=== PATIENT | female | born 1990 | race American Indian/Alaskan Native ===

== ENCOUNTER 2017-02-01 16:08 | Emergency (ER) | payer MEDICAID ==
--- NOTE | 2017-02-01 21:48 | Emergency Department Report ---
ED Lower Extremity HPI - General Chief Complaint: Extremity Injury, Lower Stated Complaint: LT KNEE SWOLLEN Time Seen by Provider: 02/01/17 21:38 Source: patient Mode of arrival: Ambulatory Limitations: No Limitations - History of Present Illness Initial Comments: 26 old female presents to emergency room with complaints of left knee injury status post fall at [facility]'s bathroom. Patient slipped and fell onto her left knee , since then her left knee has been bothering her. Patient has history of previous left knee fracture. Denies any other injury. She complains of left knee pain upon standing walking and squatting. Complaint: knee injury -: Gradual, hour(s) (several) Injury: Knee: Left (anterior aspect) Type of Injury: blunt Place: other ([employer]) Severity: moderate Severity scale (0 -10): 4 Improves With: nothing Worsens With: movement Context: fall Associated Symptoms: swelling, able to partially bear weight Treatments Prior to Arrival: cold therapy - Related Data Previous Rx's Medication Instructions Recorded Last Taken Type Cephalexin [Keflex] 1,000 mg PO BID #40 capsule 09/27/13 Unknown Rx HYDROcodone/APAP 10-325 [[place] 1 each PO Q6HR PRN #15 tablet 09/27/13 Unknown Rx 10/325] Ondansetron [Zofran] 4 mg PO Q6HR PRN #10 tablet 09/27/13 Unknown Rx HYDROcodone/APAP 5-325 [[place] 1 each PO Q6HR PRN #6 tablet 04/14/14 Unknown Rx 5/325 mg] traMADol [Ultram 50 MG tab] 50 mg PO Q6HR PRN #30 tablet 07/22/14 Unknown Rx Acetaminophen/Codeine 1 tab PO Q6H PRN #10 tab 11/26/14 Unknown Rx [Acetaminophen-Codeine #3 TAB] Ibuprofen [Motrin] 600 mg PO Q8H PRN #30 tablet 11/26/14 Unknown Rx Naproxen [Naprosyn TAB] 500 mg PO BID #30 tablet 03/05/15 Unknown Rx Acetaminophen/Codeine [Tylenol #3] 1 tab PO Q6H PRN #15 tab 11/13/15 Unknown Rx Acetaminophen/Codeine [Tylenol 1 tab PO Q6H PRN #12 tab 02/01/17 Unknown Rx /Codeine # 3 tab] Diclofenac Sodium 75 mg PO BID #20 tablet. 02/01/17 Unknown Rx Allergies Allergy/AdvReac Type Severity Reaction Status Date / Time vinay Allergy Rash Verified 11/13/15 14:50 tomato Allergy Swelling Verified 11/13/15 14:50 tramadol Allergy Bleeding Verified 11/13/15 14:50 mushrooms Allergy Swelling Uncoded 11/13/15 14:50 ED Review of Systems ROS: Stated complaint: LT KNEE SWOLLEN Other details as noted in HPI Comment: All other systems reviewed and negative Constitutional: denies: chills, fever Eyes: denies: eye pain, eye discharge, vision change ENT: denies: ear pain, throat pain Respiratory: denies: cough, shortness of breath, wheezing Cardiovascular: denies: chest pain, palpitations Endocrine: no symptoms reported Gastrointestinal: denies: abdominal pain, nausea, diarrhea Genitourinary: denies: urgency, dysuria, discharge Musculoskeletal: as per HPI, arthralgia, other (left knee). denies: back pain, joint swelling Skin: denies: rash, lesions Neurological: denies: headache, weakness, paresthesias Psychiatric: denies: anxiety, depression Hematological/Lymphatic: denies: easy bleeding, easy bruising ED Past Medical Hx - Past Medical History Hx Diabetes: Yes Hx Psychiatric Treatment: Yes (depression) - Surgical History Past Surgical History?: No Additional Surgical History: cyst removed - Family History Family history: no significant - Social History Smoking Status: Current Every Day Smoker Substance Use Type: None - Medications Home Medications: Home Medications Medication Instructions Recorded Confirmed Last Taken Type Cephalexin [Keflex] 1,000 mg PO BID #40 capsule 09/27/13 Unknown Rx HYDROcodone/APAP 10-325 [[place] 1 each PO Q6HR PRN #15 tablet 09/27/13 Unknown Rx 10/325] Ondansetron [Zofran] 4 mg PO Q6HR PRN #10 tablet 09/27/13 Unknown Rx HYDROcodone/APAP 5-325 [[place] 1 each PO Q6HR PRN #6 tablet 04/14/14 Unknown Rx 5/325 mg] traMADol [Ultram 50 MG tab] 50 mg PO Q6HR PRN #30 tablet 07/22/14 Unknown Rx Acetaminophen/Codeine 1 tab PO Q6H PRN #10 tab 11/26/14 Unknown Rx [Acetaminophen-Codeine #3 TAB] Ibuprofen [Motrin] 600 mg PO Q8H PRN #30 tablet 11/26/14 Unknown Rx Naproxen [Naprosyn TAB] 500 mg PO BID #30 tablet 03/05/15 Unknown Rx Acetaminophen/Codeine [Tylenol #3] 1 tab PO Q6H PRN #15 tab 11/13/15 Unknown Rx Acetaminophen/Codeine [Tylenol 1 tab PO Q6H PRN #12 tab 02/01/17 Unknown Rx /Codeine # 3 tab] Diclofenac Sodium 75 mg PO BID #20 tablet. 02/01/17 Unknown Rx ED Physical Exam - General Limitations: No Limitations General appearance: alert, in no apparent distress - Head Head exam: Present: atraumatic, normocephalic - Eye Eye exam: Present: normal appearance, PERRL, EOMI Pupils: Present: normal accommodation - ENT ENT exam: Present: normal exam, mucous membranes moist - Neck Neck exam: Present: normal inspection - Respiratory Respiratory exam: Present: normal lung sounds bilaterally. Absent: respiratory distress - Cardiovascular Cardiovascular Exam: Present: regular rate, normal rhythm. Absent: systolic murmur, diastolic murmur, rubs, gallop - GI/Abdominal GI/Abdominal exam: Present: soft, normal bowel sounds - Extremities Exam Extremities exam: Present: normal inspection, tenderness (anterior left patellar area. ) - Expanded Lower Extremity Exam Left Hip exam: Present: normal inspection, full ROM, tenderness Upper Leg exam: Present: normal inspection, full ROM, tenderness Knee exam: Present: tenderness (left anterior patella), swelling, pain w/ pronation/supination, full knee extension. Absent: abrasion, laceration, ecchymosis, deformity, posterior draw sign, pain/laxity with valgus, pain/ laxity with varus Lower Leg exam: Present: normal inspection, full ROM, tenderness Ankle exam: Present: normal inspection, full ROM Foot/Toe exam: Present: normal inspection, full ROM, tenderness Neuro vascular tendon exam: Present: no vascular compromise, pulse deficit Gait: Positive: antalgic - Back Exam Back exam: Present: normal inspection - Neurological Exam Neurological exam: Present: alert, oriented X3 - Psychiatric Psychiatric exam: Present: normal affect, normal mood - Skin Skin exam: Present: warm, dry, intact, normal color. Absent: rash ED Course Vital Signs 02/01/17 02/01/17 16:43 22:14 Temperature 97.4 F L 97.9 F Pulse Rate 84 83 Respiratory 18 16 Rate Blood Pressure 121/71 Blood Pressure 110/76 [Right] O2 Sat by Pulse 100 100 Oximetry - Orthopedic Splinting/Casting Injury #1 Side: left Lower Extremity Injury Location: knee Lower Extremity Immobilizer: knee immobilizer Other Orthopedic Equipment: crutches ED Lower Extremity MDM - Radiology Data Radiology results: report reviewed (no acute fracture), image reviewed Critical Care Time: No Critical care attestation.: If time is entered above; I have spent that time in minutes in the direct care of this critically ill patient, excluding procedure time. ED Disposition Clinical Impression: Contusion of knee, left Qualifiers: Encounter type: initial encounter Qualified Code(s): S80.02XA - Contusion of left knee, initial encounter Disposition: DISCHARGED TO HOME OR SELFCARE Is pt being admited?: No Does the pt Need Aspirin: No Condition: Good Instructions: Knee Pain (ED) Prescriptions: Acetaminophen/Codeine [Tylenol /Codeine # 3 tab] 1 tab PO Q6H PRN #12 tab PRN Reason: Pain Diclofenac Sodium 75 mg PO BID #20 tablet.dr Referrals: ANA STACK MD [Staff Physician] - 3-5 Days Forms: Work/School Release Form
[2017-02-01 22:14] VITALS: BP 110/76
--- NOTE | 2017-02-02 08:17 | XRay Report ---
RIGHT KNEE: The bony architecture is intact without evidence of fracture or dislocation. No significant soft tissue abnormality is seen. IMPRESSION: Normal right knee.
== END 2017-02-01 22:51 | disposition home or self-care (01) ==
LOC: ED 16:08
DX: S80.02XA Contusion of left knee, initial encounter (principal); E11.9 Type 2 diabetes mellitus without complications; F32.9 Major depressive disorder, single episode, unspecified; F17.200 Nicotine dependence, unspecified, uncomplicated; Z91.018 Allergy to other foods; Z88.8 Allergy status to other drugs, medicaments and biological substances; W18.2XXA Fall in (into) shower or empty bathtub, initial encounter; Y93.89 Activity, other specified; Y92.89 Other specified places as the place of occurrence of the external cause; Y99.8 Other external cause status
CPT/HCPCS: 81025

== ENCOUNTER 2017-11-11 16:54 | Emergency (ER) | payer MEDICAID ==
[2017-11-11] MEDS ORDERED: ASPIRIN PO ONE (17:46)
[2017-11-11 19:35] LABS: Basophils % (Auto) 0.5 % (0.0-1.8); Eosinophils % (Auto) 0.6 % (0.0-4.3); Hematocrit 40.7 % (30.3-42.9); Hemoglobin 13.2 gm/dl (10.1-14.3); Lymphocytes # (Auto) 1.8 K/mm3 (1.2-5.4); Lymphocytes % (Auto) 22.1 % (13.4-35.0); Mean Corpuscular HGB Conc 33 % (30-34); Mean Corpuscular Hemoglobin 27 pg (28-32); Mean Corpuscular Volume 81 fl (79-97); Monocytes # (Auto) 0.6 K/mm3 (0.0-0.8); Monocytes % (Auto) 7.4 % (0.0-7.3); Platelet Count 271 K/mm3 (140-440); Red Cell Distribution Width 13.8 % (13.2-15.2)
[2017-11-11 19:58] LABS: BUN/Creatinine Ratio 20; Blood Urea Nitrogen 12 mg/dL (7-17); Calcium 9.1 mg/dL (8.4-10.2); Hemolysis Index 5
[2017-11-12] MEDS ORDERED: NORCO 5/325 PO ONE (06:49)
--- NOTE | 2017-11-12 06:53 | Emergency Department Report ---
HPI - General Chief Complaint: Chest Pain Time Seen by Provider: 11/12/17 06:43 - HPI HPI: Room 4 The patient is a 27-year-old female presenting with a chief complaint chest pain. Patient states she's had across his substernal chest pain for the past 7 days. He describes the pain as sharp in nature with a pleuritic component. Patient denies any recent flights or long car trips. Patient denies any history of cough or fever. Patient states she has tried ibuprofen but it has not helped her pain. The patient currently gives her pain a score of 9/10. Location: Chest Duration: 7 days Quality: Sharp Severity:9/10 Modifying factors: [see above] Context: [see above] Mode of transportation: [not driving] ED Past Medical Hx - Past Medical History Previous Medical History?: Yes Hx Diabetes: Yes Hx Psychiatric Treatment: Yes (depression) - Surgical History Past Surgical History?: No Additional Surgical History: Buttocks cyst removed - Family History Family history: other (no family history of premature heart disease) - Social History Smoking Status: Former Smoker (none 2 weeks) Substance Use Type: None (denies illicit drug use) - Medications Home Medications: Home Medications Medication Instructions Recorded Confirmed Last Taken Type Cephalexin [Keflex] 1,000 mg PO BID #40 capsule 09/27/13 Unknown Rx HYDROcodone/APAP 10-325 [[place] 1 each PO Q6HR PRN #15 tablet 09/27/13 Unknown Rx 10/325] Ondansetron [Zofran] 4 mg PO Q6HR PRN #10 tablet 09/27/13 Unknown Rx HYDROcodone/APAP 5-325 [[place] 1 each PO Q6HR PRN #6 tablet 04/14/14 Unknown Rx 5/325 mg] traMADol [Ultram 50 MG tab] 50 mg PO Q6HR PRN #30 tablet 07/22/14 Unknown Rx Ibuprofen [Motrin] 600 mg PO Q8H PRN #30 tablet 11/26/14 Unknown Rx Naproxen [Naprosyn TAB] 500 mg PO BID #30 tablet 03/05/15 Unknown Rx Acetaminophen/Codeine [Tylenol #3] 1 tab PO Q6H PRN #15 tab 11/13/15 Unknown Rx Acetaminophen/Codeine [Tylenol 1 tab PO Q6H PRN #12 tab 04/11/17 Unknown Rx /Codeine # 3 tab] Diclofenac Sodium 75 mg PO BID #20 tablet. 02/01/17 Unknown Rx Acetaminophen/Codeine [Tylenol 1 tab PO Q6H PRN #10 tab 11/12/17 Unknown Rx /Codeine # 3 tab] Ibuprofen [Motrin 800 MG tab] 800 mg PO Q8HR PRN #20 tablet 11/12/17 Unknown Rx ED Review of Systems ROS: Stated complaint: CHEST PAIN Other details as noted in HPI Constitutional: denies: fever Eyes: denies: eye pain ENT: denies: throat pain Respiratory: denies: cough Gastrointestinal: denies: abdominal pain Genitourinary: denies: dysuria Musculoskeletal: denies: back pain Neurological: denies: headache Physical Exam - Physical Exam Vital Signs: Vital Signs 11/11/17 17:42 Temperature 97.8 F Pulse Rate 88 Respiratory 16 Rate Blood Pressure 110/81 O2 Sat by Pulse 99 Oximetry Physical Exam: GENERAL: The patient is well-developed well-nourished female lying on stretcher not appearing to be in acute distress. [] HEENT: Normocephalic. Atraumatic. Patient has moist mucous membranes. NECK: Supple. Trachea midline CHEST/LUNGS: Clear to auscultation. There is no respiratory distress noted. HEART/CARDIOVASCULAR: Regular. There is no tachycardia. There is no gallop rub or murmur. ABDOMEN: Abdomen is soft, nontender. Patient has normal bowel sounds. There is no abdominal distention. SKIN: There is no rash. There is no edema. There is no diaphoresis. NEURO: The patient is awake, alert, and oriented. The patient is cooperative. The patient has normal speech MUSCULOSKELETAL: There is no evidence of acute injury. ED Course Vital Signs 11/11/17 17:42 Temperature 97.8 F Pulse Rate 88 Respiratory 16 Rate Blood Pressure 110/81 O2 Sat by Pulse 99 Oximetry ED Medical Decision Making - Lab Data Result diagrams: 11/11/17 19:20 11/11/17 19:20 Laboratory Tests 11/11/17 11/11/17 11/11/17 19:20 19:20 19:20 WBC 8.0 RBC 5.00 Hgb 13.2 Hct 40.7 MCV 81 MCH 27 L MCHC 33 RDW 13.8 Plt Count 271 Lymph % (Auto) 22.1 [place] % (Auto) 7.4 H Eos % (Auto) 0.6 Baso % (Auto) 0.5 Lymph # 1.8 [place] # 0.6 Eos # 0.0 Baso # 0.0 Seg Neutrophils % 69.4 Seg Neutrophils # 5.5 D-Dimer Sodium 139 Potassium 4.0 Chloride 100.3 Carbon Dioxide 25 Anion Gap 18 BUN 12 Creatinine 0.6 L Estimated GFR > 60 BUN/Creatinine Ratio 20 Glucose 95 Calcium 9.1 Troponin T < 0.010 NT-Pro-B Natriuret Pep 63.19 HCG, Qual 11/11/17 11/11/17 11/12/17 23:14 23:46 07:16 WBC RBC Hgb Hct MCV MCH MCHC RDW Plt Count Lymph % (Auto) [place] % (Auto) Eos % (Auto) Baso % (Auto) Lymph # [place] # Eos # Baso # Seg Neutrophils % Seg Neutrophils # D-Dimer 168.68 Sodium Potassium Chloride Carbon Dioxide Anion Gap BUN Creatinine Estimated GFR BUN/Creatinine Ratio Glucose Calcium Troponin T < 0.010 < 0.010 NT-Pro-B Natriuret Pep HCG, Qual 11/12/17 07:16 WBC RBC Hgb Hct MCV MCH MCHC RDW Plt Count Lymph % (Auto) [place] % (Auto) Eos % (Auto) Baso % (Auto) Lymph # [place] # Eos # Baso # Seg Neutrophils % Seg Neutrophils # D-Dimer Sodium Potassium Chloride Carbon Dioxide Anion Gap BUN Creatinine Estimated GFR BUN/Creatinine Ratio Glucose Calcium Troponin T NT-Pro-B Natriuret Pep HCG, Qual Negative - EKG Data -: EKG Interpreted by Me EKG shows normal: sinus rhythm Rate: normal - EKG Data When compared to previous EKG there are: previous EKG unavailable Interpretation: normal EKG - Radiology Data Radiology results: image reviewed (chest x-ray) interpreted by me: Chest x-ray-no focal infiltrates, no pneumothorax - Differential Diagnosis PE, pleurisy, bronchitis, pneumothorax Critical care attestation.: If time is entered above; I have spent that time in minutes in the direct care of this critically ill patient, excluding procedure time. ED Disposition Clinical Impression: Chest pain, Pleurisy Disposition: - TO HOME OR SELFCARE Is pt being admited?: No Does the pt Need Aspirin: No Condition: Stable Instructions: Chest Pain (ED) Additional Instructions: Return to the emergency department immediately should you develop worsening symptoms, fever, inability to tolerate food or liquid or any other concerns. Prescriptions: Acetaminophen/Codeine [Tylenol /Codeine # 3 tab] 1 tab PO Q6H PRN #10 tab PRN Reason: Pain Ibuprofen [Motrin 800 MG tab] 800 mg PO Q8HR PRN #20 tablet PRN Reason: Pain Referrals: KIRIT ROBERSON MD [Primary Care Provider] - 3-5 Days Time of Disposition: 08:31
[2017-11-12] MEDS ORDERED: ASPIRIN ONE (07:00)
--- NOTE | 2017-11-12 08:58 | XRay Report ---
FINAL REPORT EXAM: XRAY CHEST 2 VIEWS HISTORY: chest pain TECHNIQUE: Chest, PA and lateral PRIORS: None. FINDINGS: The heart size is normal. Mediastinal contours are normal. Pulmonary vasculature is not congested. The lungs are clear. There are no pleural effusion seen. There is no evidence of pneumothorax. IMPRESSION: There is no acute abnormality identified.
[2017-11-12 09:06] VITALS: BP 115/82
== END 2017-11-12 09:05 | disposition home or self-care (01) ==
LOC: ED 16:54
DX: R07.89 Other chest pain (principal); E11.9 Type 2 diabetes mellitus without complications; F32.9 Major depressive disorder, single episode, unspecified; Z87.891 Personal history of nicotine dependence
CPT/HCPCS: 36415; 71046; 80048; 83880; 84484; 84703; 85025; 85379; 93005; 93010

== ENCOUNTER 2017-11-24 01:33 | Emergency (ER) | payer MEDICAID ==
[2017-11-24] MEDS ORDERED: ASPIRIN PO ONE (02:22)
[2017-11-24 02:23] VITALS: BP 142/84
== END 2017-11-24 02:00 | disposition left against medical advice (07) ==
LOC: ED 01:33
DX: R07.9 Chest pain, unspecified (principal); Z53.21 Procedure and treatment not carried out due to patient leaving prior to being seen by health care provider
CPT/HCPCS: 93005; 93010

== ENCOUNTER 2018-06-15 15:58 | Emergency (ER) | payer MEDICAID ==
[2018-06-15 16:26] VITALS: BP 130/85
--- NOTE | 2018-06-15 18:14 | Emergency Department Report ---
ED General Adult HPI - General Chief complaint: Chest Pain Stated complaint: CHEST PAIN Time Seen by Provider: 06/15/18 18:03 Source: patient Mode of arrival: Ambulatory Limitations: No Limitations - History of Present Illness Initial comments: Patient is a 27-year-old female who is presenting with 3 days of cough cold congestion substernal chest pain. The patient also says some mild nausea. Patient states the cough is nonproductive. Patient denies fevers chills nausea vomiting diarrhea at this time Severity scale (0 -10): 6 Quality: sharp - Related Data Previous Rx's Medication Instructions Recorded Last Taken Type Cephalexin [Keflex] 1,000 mg PO BID #40 capsule 09/27/13 Unknown Rx HYDROcodone/APAP 10-325 [[place] 1 each PO Q6HR PRN #15 tablet 09/27/13 Unknown Rx 10/325] Ondansetron [Zofran] 4 mg PO Q6HR PRN #10 tablet 09/27/13 Unknown Rx HYDROcodone/APAP 5-325 [[place] 1 each PO Q6HR PRN #6 tablet 04/14/14 Unknown Rx 5/325 mg] traMADol [Ultram 50 MG tab] 50 mg PO Q6HR PRN #30 tablet 07/22/14 Unknown Rx Ibuprofen [Motrin] 600 mg PO Q8H PRN #30 tablet 11/26/14 Unknown Rx Naproxen [Naprosyn TAB] 500 mg PO BID #30 tablet 03/05/15 Unknown Rx Acetaminophen/Codeine [Tylenol #3] 1 tab PO Q6H PRN #15 tab 11/13/15 Unknown Rx Acetaminophen/Codeine [Tylenol 1 tab PO Q6H PRN #12 tab 02/01/17 Unknown Rx /Codeine # 3 tab] Diclofenac Sodium 75 mg PO BID #20 tablet. 02/01/17 Unknown Rx Acetaminophen/Codeine [Tylenol 1 tab PO Q6H PRN #10 tab 11/12/17 Unknown Rx /Codeine # 3 tab] Ibuprofen [Motrin 800 MG tab] 800 mg PO Q8HR PRN #20 tablet 11/12/17 Unknown Rx ALBUTEROL Inhaler [ProAir HFA 2 puff IH QID PRN #1 inhalation 06/15/18 Unknown Rx Inhaler] HYDROcodone/APAP 5-325 [[place] 1 each PO Q4HR PRN #12 tablet 06/15/18 Unknown Rx 5/325] Ondansetron [Zofran Odt] 4 mg PO Q8HR PRN #10 tab.rapdis 06/15/18 Unknown Rx predniSONE [Deltasone] 20 mg PO QDAY #5 tab 06/15/18 Unknown Rx Allergies Allergy/AdvReac Type Severity Reaction Status Date / Time vinay Allergy Rash Verified 11/13/15 14:50 tomato Allergy Swelling Verified 11/13/15 14:50 tramadol Allergy Bleeding Verified 11/13/15 14:50 mushrooms Allergy Swelling Uncoded 11/13/15 14:50 ED Review of Systems ROS: Stated complaint: CHEST PAIN Other details as noted in HPI Constitutional: denies: chills, fever Eyes: denies: eye pain, eye discharge, vision change ENT: denies: ear pain, throat pain Respiratory: cough. denies: shortness of breath, wheezing Cardiovascular: chest pain. denies: palpitations Endocrine: no symptoms reported Gastrointestinal: denies: abdominal pain, nausea, diarrhea Genitourinary: denies: urgency, dysuria, discharge Musculoskeletal: denies: back pain, joint swelling, arthralgia Skin: denies: rash, lesions Neurological: denies: headache, weakness, paresthesias Psychiatric: denies: anxiety, depression Hematological/Lymphatic: denies: easy bleeding, easy bruising ED Past Medical Hx - Past Medical History Previous Medical History?: Yes Hx Diabetes: Yes Hx Psychiatric Treatment: Yes (depression) - Surgical History Past Surgical History?: Yes Additional Surgical History: Buttocks cyst removed - Social History Smoking Status: Never Smoker Substance Use Type: None - Medications Home Medications: Home Medications Medication Instructions Recorded Confirmed Last Taken Type Cephalexin [Keflex] 1,000 mg PO BID #40 capsule 09/27/13 Unknown Rx HYDROcodone/APAP 10-325 [[place] 1 each PO Q6HR PRN #15 tablet 09/27/13 Unknown Rx 10/325] Ondansetron [Zofran] 4 mg PO Q6HR PRN #10 tablet 09/27/13 Unknown Rx HYDROcodone/APAP 5-325 [[place] 1 each PO Q6HR PRN #6 tablet 04/14/14 Unknown Rx 5/325 mg] traMADol [Ultram 50 MG tab] 50 mg PO Q6HR PRN #30 tablet 07/22/14 Unknown Rx Ibuprofen [Motrin] 600 mg PO Q8H PRN #30 tablet 11/26/14 Unknown Rx Naproxen [Naprosyn TAB] 500 mg PO BID #30 tablet 03/05/15 Unknown Rx Acetaminophen/Codeine [Tylenol #3] 1 tab PO Q6H PRN #15 tab 11/13/15 Unknown Rx Acetaminophen/Codeine [Tylenol 1 tab PO Q6H PRN #12 tab 02/01/17 Unknown Rx /Codeine # 3 tab] Diclofenac Sodium 75 mg PO BID #20 tablet. 02/01/17 Unknown Rx Acetaminophen/Codeine [Tylenol 1 tab PO Q6H PRN #10 tab 11/12/17 Unknown Rx /Codeine # 3 tab] Ibuprofen [Motrin 800 MG tab] 800 mg PO Q8HR PRN #20 tablet 11/12/17 Unknown Rx ALBUTEROL Inhaler [ProAir HFA 2 puff IH QID PRN #1 inhalation 06/15/18 Unknown Rx Inhaler] HYDROcodone/APAP 5-325 [[place] 1 each PO Q4HR PRN #12 tablet 06/15/18 Unknown Rx 5/325] Ondansetron [Zofran Odt] 4 mg PO Q8HR PRN #10 tab.rapdis 06/15/18 Unknown Rx predniSONE [Deltasone] 20 mg PO QDAY #5 tab 06/15/18 Unknown Rx ED Physical Exam - General Limitations: No Limitations General appearance: alert, in no apparent distress - Head Head exam: Present: atraumatic, normocephalic - Eye Eye exam: Present: normal appearance - ENT ENT exam: Present: mucous membranes moist - Neck Neck exam: Present: normal inspection - Respiratory Respiratory exam: Present: normal lung sounds bilaterally. Absent: respiratory distress, wheezes, rales, rhonchi - Cardiovascular Cardiovascular Exam: Present: regular rate, normal rhythm, normal heart sounds. Absent: systolic murmur, diastolic murmur, rubs, gallop - GI/Abdominal GI/Abdominal exam: Present: soft, normal bowel sounds. Absent: distended, tenderness, guarding, rebound - Extremities Exam Extremities exam: Present: normal inspection - Back Exam Back exam: Present: normal inspection - Neurological Exam Neurological exam: Present: alert, oriented X3 - Psychiatric Psychiatric exam: Present: normal affect, normal mood - Skin Skin exam: Present: warm, dry, intact, normal color. Absent: rash ED Course Vital Signs 06/15/18 16:10 Temperature 98.7 F Pulse Rate 98 H Respiratory 16 Rate Blood Pressure 130/85 O2 Sat by Pulse 96 Oximetry ED Medical Decision Making - EKG Data -: EKG Interpreted by Me EKG shows normal: sinus rhythm, axis, intervals, QRS complexes, ST-T waves Rate: normal - EKG Data Interpretation: normal EKG - Medical Decision Making Patient's lungs are clear O2 sat is within normal limits she is not tachycardic. Patient will be treated for a mild bronchitis and be discharged home. Critical care attestation.: If time is entered above; I have spent that time in minutes in the direct care of this critically ill patient, excluding procedure time. ED Disposition Clinical Impression: Acute bronchitis Qualifiers: Bronchitis organism: unspecified organism Qualified Code(s): J20.9 - Acute bronchitis, unspecified Disposition: DC-01 TO HOME OR SELFCARE Is pt being admited?: No Does the pt Need Aspirin: No Condition: Stable Instructions: Acute Bronchitis (ED) Referrals: [facility] [Outside] - 3-5 Days Time of Disposition: 18:13
== END 2018-06-15 18:30 | disposition home or self-care (01) ==
LOC: ED 15:58
DX: J20.9 Acute bronchitis, unspecified (principal); E11.9 Type 2 diabetes mellitus without complications; F32.9 Major depressive disorder, single episode, unspecified; Z91.018 Allergy to other foods
CPT/HCPCS: 93005; 93010; 99282

== ENCOUNTER 2019-01-01 03:46 | Emergency (ER) | payer MEDICAID ==
--- NOTE | 2019-01-01 05:24 | Emergency Department Report ---
ED General Adult HPI - General Chief complaint: Chest Pain Stated complaint: CHEST PAIN Time Seen by Provider: 01/01/19 04:49 Source: patient Mode of arrival: Ambulatory Limitations: No Limitations - History of Present Illness Initial comments: Patient's 28-year-old black female history of bronchitis and presents for cough or chest pain 3 days chest pain is reproducible by cough only there is no fevers as no chills no active wheezing no nausea vomiting patient does endorse sick contacts , there is no cp at this time no n/v no diaphoresis no back pain no dizziness no lightheadednesss cough is productive clear mucus , there is no fever no chills. MD Complaint: chest pain with cough Onset/Timin -: unknown (ffffff) Location: chest Radiation: non-radiation Severity scale (0 -10): 5 Quality: sharp Consistency: constant ( ) Improves with: rest Worsens with: other (environmental exposure ) Associated Symptoms: chest pain, cough - Related Data Previous Rx's Medication Instructions Recorded Last Taken Type Cephalexin [Keflex] 1,000 mg PO BID #40 capsule 09/27/13 Unknown Rx Ondansetron [Zofran] 4 mg PO Q6HR PRN #10 tablet 09/27/13 Unknown Rx Ibuprofen [Motrin] 600 mg PO Q8H PRN #30 tablet 11/26/14 Unknown Rx Naproxen [Naprosyn TAB] 500 mg PO BID #30 tablet 03/05/15 Unknown Rx Acetaminophen/Codeine [Tylenol 1 tab PO Q6H PRN #12 tab 02/01/17 Unknown Rx /Codeine # 3 tab] Diclofenac Sodium 75 mg PO BID #20 tablet. 02/01/17 Unknown Rx Acetaminophen/Codeine [Tylenol 1 tab PO Q6H PRN #10 tab 11/12/17 Unknown Rx /Codeine # 3 tab] Ibuprofen [Motrin 800 MG tab] 800 mg PO Q8HR PRN #20 tablet 11/12/17 Unknown Rx ALBUTEROL Inhaler (OR & NICU) 2 puff IH QID PRN #1 inhalation 06/15/18 Unknown Rx [ProAir HFA Inhaler] Ondansetron [Zofran Odt] 4 mg PO Q8HR PRN #10 tab.rapdis 06/15/18 Unknown Rx predniSONE [Deltasone] 20 mg PO QDAY #5 tab 06/15/18 Unknown Rx Acetaminophen [Tylenol Arthritis] 650 mg PO Q6HR PRN #30 tablet.er 10/15/18 Unknown Rx Ibuprofen [Motrin] 600 mg PO Q8H PRN #30 tablet 10/15/18 Unknown Rx Guaifenesin/Pseudoephedrne HCl 1 each PO BID PRN #24 tab.er.12h 01/01/19 Unknown Rx [Mucinex D ER 1,200-120 mg Tab] Ibuprofen 800 mg PO TID PRN #30 tablet 01/01/19 Unknown Rx Allergies Allergy/AdvReac Type Severity Reaction Status Date / Time vinay Allergy Rash Verified 11/13/15 14:50 tomato Allergy Swelling Verified 11/13/15 14:50 tramadol Allergy Bleeding Verified 11/13/15 14:50 mushrooms Allergy Swelling Uncoded 11/13/15 14:50 ED Review of Systems ROS: Stated complaint: CHEST PAIN Other details as noted in HPI Constitutional: denies: chills, fever Eyes: denies: eye pain, eye discharge, vision change ENT: congestion Respiratory: cough. denies: wheezing Cardiovascular: chest pain Endocrine: no symptoms reported Gastrointestinal: denies: abdominal pain, nausea, diarrhea Genitourinary: denies: urgency, dysuria, discharge Musculoskeletal: denies: back pain, joint swelling, arthralgia Skin: denies: rash, lesions Neurological: denies: headache, weakness, paresthesias Psychiatric: denies: anxiety, depression Hematological/Lymphatic: denies: easy bleeding, easy bruising ED Past Medical Hx - Past Medical History Previous Medical History?: Yes Hx Diabetes: Yes Hx Psychiatric Treatment: Yes (depression) - Surgical History Past Surgical History?: Yes Additional Surgical History: Buttocks cyst removed - Social History Smoking Status: Never Smoker Substance Use Type: None - Medications Home Medications: Home Medications Medication Instructions Recorded Confirmed Last Taken Type Cephalexin [Keflex] 1,000 mg PO BID #40 capsule 09/27/13 Unknown Rx Ondansetron [Zofran] 4 mg PO Q6HR PRN #10 tablet 09/27/13 Unknown Rx Ibuprofen [Motrin] 600 mg PO Q8H PRN #30 tablet 11/26/14 Unknown Rx Naproxen [Naprosyn TAB] 500 mg PO BID #30 tablet 03/05/15 Unknown Rx Acetaminophen/Codeine [Tylenol 1 tab PO Q6H PRN #12 tab 02/01/17 Unknown Rx /Codeine # 3 tab] Diclofenac Sodium 75 mg PO BID #20 tablet. 02/01/17 Unknown Rx Acetaminophen/Codeine [Tylenol 1 tab PO Q6H PRN #10 tab 11/12/17 Unknown Rx /Codeine # 3 tab] Ibuprofen [Motrin 800 MG tab] 800 mg PO Q8HR PRN #20 tablet 11/12/17 Unknown Rx ALBUTEROL Inhaler (OR & NICU) 2 puff IH QID PRN #1 inhalation 06/15/18 Unknown Rx [ProAir HFA Inhaler] Ondansetron [Zofran Odt] 4 mg PO Q8HR PRN #10 tab.rapdis 06/15/18 Unknown Rx predniSONE [Deltasone] 20 mg PO QDAY #5 tab 06/15/18 Unknown Rx Acetaminophen [Tylenol Arthritis] 650 mg PO Q6HR PRN #30 tablet.er 10/15/18 Unknown Rx Ibuprofen [Motrin] 600 mg PO Q8H PRN #30 tablet 10/15/18 Unknown Rx Guaifenesin/Pseudoephedrne HCl 1 each PO BID PRN #24 tab.er.12h 01/01/19 Unknown Rx [Mucinex D ER 1,200-120 mg Tab] Ibuprofen 800 mg PO TID PRN #30 tablet 01/01/19 Unknown Rx ED Physical Exam - General Limitations: No Limitations General appearance: alert, in no apparent distress - Head Head exam: Present: atraumatic, normocephalic - Eye Eye exam: Present: normal appearance - ENT ENT exam: Present: mucous membranes moist - Neck Neck exam: Present: normal inspection - Respiratory Respiratory exam: Present: normal lung sounds bilaterally, chest wall tenderness. Absent: respiratory distress, wheezes, stridor, prolonged expiratory - Cardiovascular Cardiovascular Exam: Present: regular rate, normal rhythm, normal heart sounds. Absent: systolic murmur, diastolic murmur, rubs, gallop - GI/Abdominal GI/Abdominal exam: Present: soft, normal bowel sounds. Absent: distended, tenderness, guarding, rebound, bruit, hernia - Rectal Rectal exam: Present: deferred - Extremities Exam Extremities exam: Present: normal inspection, full ROM. Absent: tenderness - Back Exam Back exam: Present: normal inspection, full ROM, muscle spasm, paraspinal tenderness. Absent: tenderness, CVA tenderness (R), CVA tenderness (L), rash noted - Neurological Exam Neurological exam: Present: alert, oriented X3, CN II-XII intact, normal gait, reflexes normal - Psychiatric Psychiatric exam: Present: normal affect, normal mood - Skin Skin exam: Present: warm, dry, intact, normal color. Absent: rash ED Course Vital Signs 01/01/19 03:47 Temperature 97.9 F Pulse Rate 89 Respiratory 18 Rate Blood Pressure 127/81 O2 Sat by Pulse 98 Oximetry ED Medical Decision Making - EKG Data EKG shows normal: sinus rhythm, axis, intervals, QRS complexes, ST-T waves Rate: normal, tachycardia - EKG Data Interpretation: normal EKG, other (PAC ) - Radiology Data Radiology results: report reviewed, image reviewed - Medical Decision Making this is a URI with cough plan: Mucinex D, Ibuprofen, follow up with pcp in 2-3 days return to ed if symptoms worsen, pt verbalized agreement and understanding of discharge plan. Critical care attestation.: If time is entered above; I have spent that time in minutes in the direct care of this critically ill patient, excluding procedure time. ED Disposition Clinical Impression: Bronchitis URI (upper respiratory infection) Qualifiers: URI type: unspecified viral URI Qualified Code(s): J06.9 - Acute upper respiratory infection, unspecified Disposition: - TO HOME OR SELFCARE Is pt being admited?: No Does the pt Need Aspirin: No Condition: Stable Instructions: Chronic Bronchitis (ED) Prescriptions: Ibuprofen 800 mg PO TID PRN #30 tablet PRN Reason: pain Guaifenesin/Pseudoephedrne HCl [Mucinex D ER 1,200-120 mg Tab] 1 each PO BID PRN #24 tab.er.12h PRN Reason: cough chest congestion Referrals: MIA HAMILTON MD [Primary Care Provider] - 3-5 Days [facility] [Outside] - 3-5 Days Forms: Work/School Release Form(ED) Time of Disposition: 05:36
--- NOTE | 2019-01-01 06:47 | XRay Report ---
PROCEDURE: XR CHEST 1V AP TECHNIQUE: Chest radiograph single view. HISTORY: Chest Pain COMPARISONS: None . FINDINGS: Heart: Normal. Mediastinum/Vessels: Normal. Lungs/Pleural space: Normal. Bony thorax: No acute osseous abnormality. Life support devices: None. IMPRESSION: No acute cardiopulmonary abnormality. This document is electronically signed by Chay Irwin MD., January 01 2019 06:45:47 AM ET
[2019-01-01 07:00] VITALS: BP 123/82
== END 2019-01-01 07:00 | disposition home or self-care (01) ==
LOC: ED 03:46
DX: J40 Bronchitis, not specified as acute or chronic (principal); J06.9 Acute upper respiratory infection, unspecified; E11.9 Type 2 diabetes mellitus without complications; F32.9 Major depressive disorder, single episode, unspecified; Z79.899 Other long term (current) drug therapy; Z91.018 Allergy to other foods; Z88.6 Allergy status to analgesic agent
CPT/HCPCS: 71045; 93005; 93010; 99283

== ENCOUNTER 2019-01-27 05:04 | Emergency (ER) | payer MEDICAID ==
--- NOTE | 2019-01-27 06:05 | XRay Report ---
PROCEDURE: XR CHEST ROUTINE 2V TECHNIQUE: PA and lateral chest radiographs were obtained. HISTORY: Cough/CP COMPARISONS: 01/01/2019. FINDINGS: Heart: Normal. Mediastinum/Vessels: Normal. Lungs/Pleural space: Normal. Bony thorax: No acute osseous abnormality. IMPRESSION: Normal examination. This document is electronically signed by Chay Irwin MD., January 27 2019 06:02:57 AM ET
--- NOTE | 2019-01-27 10:45 | Emergency Department Report ---
ED Chest Pain HPI - General Chief Complaint: Chest Pain Stated Complaint: CHEST PAIN Time Seen by Provider: 01/27/19 08:09 Source: patient Mode of arrival: Ambulatory Limitations: No Limitations - History of Present Illness Initial Comments: 28-year-old obese female to emergency Department complaining of pain to the chest started after a coughing series. Pain is worse with palpation and range of motion. She reports no shortness of breath, wheezing, hemoptysis, hematemesis, fever, chills, sweats, presyncope. MD Complaint: chest pain -: Gradual Pain Location: other Pain Radiation: none Severity scale (0 -10): 10 Quality: sharp Consistency: constant Improves With: nothing Worsens With: nothing Context: other Other Symptoms: cough Treatments Prior to Arrival: none - Related Data Previous Rx's Medication Instructions Recorded Last Taken Type Cephalexin [Keflex] 1,000 mg PO BID #40 capsule 09/27/13 Unknown Rx Ondansetron [Zofran] 4 mg PO Q6HR PRN #10 tablet 09/27/13 Unknown Rx Ibuprofen [Motrin] 600 mg PO Q8H PRN #30 tablet 11/26/14 Unknown Rx Naproxen [Naprosyn TAB] 500 mg PO BID #30 tablet 03/05/15 Unknown Rx Acetaminophen/Codeine [Tylenol 1 tab PO Q6H PRN #12 tab 02/01/17 Unknown Rx /Codeine # 3 tab] Diclofenac Sodium 75 mg PO BID #20 tablet. 02/01/17 Unknown Rx Acetaminophen/Codeine [Tylenol 1 tab PO Q6H PRN #10 tab 11/12/17 Unknown Rx /Codeine # 3 tab] Ibuprofen [Motrin 800 MG tab] 800 mg PO Q8HR PRN #20 tablet 11/12/17 Unknown Rx ALBUTEROL Inhaler (OR & NICU) 2 puff IH QID PRN #1 inhalation 06/15/18 Unknown Rx [ProAir HFA Inhaler] Ondansetron [Zofran Odt] 4 mg PO Q8HR PRN #10 tab.rapdis 06/15/18 Unknown Rx predniSONE [Deltasone] 20 mg PO QDAY #5 tab 06/15/18 Unknown Rx Acetaminophen [Tylenol Arthritis] 650 mg PO Q6HR PRN #30 tablet.er 10/15/18 Unknown Rx Ibuprofen [Motrin] 600 mg PO Q8H PRN #30 tablet 10/15/18 Unknown Rx Guaifenesin/Pseudoephedrne HCl 1 each PO BID PRN #24 tab.er.12h 01/01/19 Unknown Rx [Mucinex D ER 1,200-120 mg Tab] Ibuprofen 800 mg PO TID PRN #30 tablet 01/01/19 Unknown Rx Ketorolac [Toradol] 10 mg PO Q6H PRN #20 tablet 01/27/19 Unknown Rx Allergies Allergy/AdvReac Type Severity Reaction Status Date / Time vinay Allergy Rash Verified 11/13/15 14:50 tomato Allergy Swelling Verified 11/13/15 14:50 tramadol Allergy Bleeding Verified 11/13/15 14:50 mushrooms Allergy Swelling Uncoded 11/13/15 14:50 Heart Score - HEART Score History: Slightly suspicious EKG: Normal Age: < 45 Risk factors: 1-2 risk factors Troponin: < normal limit (no cardiac markers done) HEART Score: 1 ED Review of Systems ROS: Stated complaint: CHEST PAIN Other details as noted in HPI Constitutional: denies: chills, fever Eyes: denies: eye pain, eye discharge, vision change ENT: denies: ear pain, throat pain Respiratory: denies: cough, shortness of breath, wheezing Cardiovascular: denies: chest pain, palpitations Endocrine: no symptoms reported Gastrointestinal: denies: abdominal pain, nausea, diarrhea Genitourinary: denies: urgency, dysuria, discharge Musculoskeletal: denies: back pain, joint swelling, arthralgia Skin: denies: rash, lesions Neurological: denies: headache, weakness, paresthesias Psychiatric: denies: anxiety, depression Hematological/Lymphatic: denies: easy bleeding, easy bruising ED Past Medical Hx - Past Medical History Previous Medical History?: Yes Hx Diabetes: Yes Hx Psychiatric Treatment: Yes (depression) - Surgical History Past Surgical History?: Yes Additional Surgical History: Buttocks cyst removed - Social History Smoking Status: Former Smoker Substance Use Type: None - Medications Home Medications: Home Medications Medication Instructions Recorded Confirmed Last Taken Type Cephalexin [Keflex] 1,000 mg PO BID #40 capsule 09/27/13 Unknown Rx Ondansetron [Zofran] 4 mg PO Q6HR PRN #10 tablet 09/27/13 Unknown Rx Ibuprofen [Motrin] 600 mg PO Q8H PRN #30 tablet 11/26/14 Unknown Rx Naproxen [Naprosyn TAB] 500 mg PO BID #30 tablet 03/05/15 Unknown Rx Acetaminophen/Codeine [Tylenol 1 tab PO Q6H PRN #12 tab 02/01/17 Unknown Rx /Codeine # 3 tab] Diclofenac Sodium 75 mg PO BID #20 tablet.dr 02/01/17 Unknown Rx Acetaminophen/Codeine [Tylenol 1 tab PO Q6H PRN #10 tab 11/12/17 Unknown Rx /Codeine # 3 tab] Ibuprofen [Motrin 800 MG tab] 800 mg PO Q8HR PRN #20 tablet 11/12/17 Unknown Rx ALBUTEROL Inhaler (OR & NICU) 2 puff IH QID PRN #1 inhalation 06/15/18 Unknown Rx [ProAir HFA Inhaler] Ondansetron [Zofran Odt] 4 mg PO Q8HR PRN #10 tab.rapdis 06/15/18 Unknown Rx predniSONE [Deltasone] 20 mg PO QDAY #5 tab 06/15/18 Unknown Rx Acetaminophen [Tylenol Arthritis] 650 mg PO Q6HR PRN #30 tablet.er 10/15/18 Unknown Rx Ibuprofen [Motrin] 600 mg PO Q8H PRN #30 tablet 10/15/18 Unknown Rx Guaifenesin/Pseudoephedrne HCl 1 each PO BID PRN #24 tab.er.12h 01/01/19 Unknown Rx [Mucinex D ER 1,200-120 mg Tab] Ibuprofen 800 mg PO TID PRN #30 tablet 01/01/19 Unknown Rx Ketorolac [Toradol] 10 mg PO Q6H PRN #20 tablet 01/27/19 Unknown Rx ED Physical Exam - General Limitations: No Limitations General appearance: alert, in no apparent distress - Head Head exam: Present: atraumatic, normocephalic - Eye Eye exam: Present: normal appearance - ENT ENT exam: Present: mucous membranes moist - Neck Neck exam: Present: normal inspection - Respiratory Respiratory exam: Present: normal lung sounds bilaterally, chest wall tenderness (pain to the sternal border with palpation. Pain with the proposed adduction of the arms as well.). Absent: respiratory distress, wheezes, rales, rhonchi, accessory muscle use, decreased breath sounds - Cardiovascular Cardiovascular Exam: Present: regular rate, normal rhythm. Absent: irregular rhythm, systolic murmur, diastolic murmur, rubs, gallop - GI/Abdominal GI/Abdominal exam: Present: soft, normal bowel sounds - Extremities Exam Extremities exam: Present: normal inspection, normal capillary refill - Back Exam Back exam: Present: normal inspection. Absent: CVA tenderness (R), CVA tenderness (L) - Neurological Exam Neurological exam: Present: alert, oriented X3, CN II-XII intact - Psychiatric Psychiatric exam: Present: normal affect, normal mood - Skin Skin exam: Present: warm, dry, intact, normal color. Absent: rash ED Course Vital Signs 01/27/19 01/27/19 05:12 08:42 Temperature 97.9 F Pulse Rate 96 H 86 Respiratory 20 18 Rate Blood Pressure 126/79 O2 Sat by Pulse 97 98 Oximetry HOLLI score - Holli Score Age > 65: (0) No Aspirin use within the Past 7 Days: (0) No 3 or more CAD Risk Factors: (0) No 2 or more Angina events in past 24 hrs: (0) No Known CAD with more than 50% Stenosis: (0) No Elevated Cardiac Markers: (0) No (no cardiac markers done) ST Deviation Greater than 0.5mm: (0) No HOLLI Score: 0 Critical care attestation.: If time is entered above; I have spent that time in minutes in the direct care of this critically ill patient, excluding procedure time. ED Disposition Clinical Impression: Musculoskeletal chest pain Disposition: DC-01 TO HOME OR SELFCARE Is pt being admited?: No Does the pt Need Aspirin: No Condition: Stable Instructions: Chest Pain (ED), Costochondritis (ED) Prescriptions: Ketorolac [Toradol] 10 mg PO Q6H PRN #20 tablet PRN Reason: Pain Referrals: ANJUM CARRASCO MD [Primary Care Provider] - 3-5 Days
[2019-01-27 10:47] VITALS: BP 132/68
== END 2019-01-27 10:46 | disposition home or self-care (01) ==
LOC: ED 05:04
DX: R07.9 Chest pain, unspecified (principal); E11.9 Type 2 diabetes mellitus without complications; F32.9 Major depressive disorder, single episode, unspecified; Z87.891 Personal history of nicotine dependence
CPT/HCPCS: 71046; 93005; 93010